=== PATIENT | male | born 1950 | race Caucasian/White ===

== ENCOUNTER 2018-05-22 10:20 | Outpatient (CLI) | payer MEDICARE, OTHER ==
--- NOTE | 2018-05-22 12:35 | MRI ---
MRI LUMBAR SPINE WITHOUT CONTRAST: HISTORY: Lumbar radiculopathy. Right arm pain with bilateral hand numbness. Low back pain with radiation shmuel n both legs. COMPARISON: None. TECHNIQUE: MRI lumbar spine is performed without intravenous Gadolinium administration. Multisequential, multip lanar imaging is performed. FINDINGS: Appropriate T1 marrow signal intensity of the lumbar vertebrae. Lumbar vertebral height is maintaine d. There is no fracture. No significant STIR hyperintensity to suggest vertebral body edema or liga mentous injury. There is edema involving the left and right pedicle at L4 and L5. There is a small amount of fluid in the associated facet joint at L4-L5. The presents of edema is likely due to mecha nical stress. Symmetric signal intensity of the psoas muscles. Appropriate signal intensity in the visualized leena d organs. Conus medullaris terminates at the mid L1 level. T12-L1: No significant central canal stenosis or neural foraminal narrowing. L1-L2: No significant central canal stenosis or foraminal narrowing. L2-L3: No significant central canal stenosis or foraminal narrowing. L3-L4: No significant central canal stenosis or foraminal narrowing. L4-L5: Mild loss of disk space height. Generalized disk bulge, ligamentum flavum thickening, and fa cet hypertrophy result in mild central canal stenosis. There is fluid in both facet joints. Mild bi lateral foraminal narrowing. L5-S1: Adequate disk hydration. No significant central canal stenosis. Neural foramen are patent. IMPRESSION: Degenerative disk disease at L4-L5 without significant central canal stenosis or significant foramina l narrowing. However, there does appear to be edematous change involving the left and right pedicle at L4 and L5 which is presumed to be due to mechanical stresses. POS: [facility]
--- NOTE | 2018-05-22 13:24 | MRI ---
CERVICAL SPINE MRI NONCONTRAST: Date: 05/22/18 INDICATION: Chronic neck pain, cervical radiculopathy, bilateral upper extremity numbness. No prior imaging comparison available. FINDINGS: There is degenerative hypertrophy at the C1-2 level with mild effacement of the ventral thecal sac, a lthough no significant proximal cord deformity as a result. C2-3: There is mild disc osteophyte without high grade central canal stenosis. Motion artifact limits asses sment of the neural foramina. C3-4: Broad based disc osteophyte effaces the ventral thecal sac and there is mild central canal stenosis. Neural foramina are obscured by motion, although there is suggestion of moderate to severe left margoth inal stenosis due to marked, asymmetric degenerative left facet hypertrophy. C4-5: There is a broad based disc osteophyte with mild narrowing of the central canal. Prominent, left asym metric facet hypertrophy results in severe left foraminal stenosis. There is moderate right foraminal stenosis. C5-6: There is a left paracentral disc protrusion superimposed upon a disc osteophyte complex. This results in ventral cord effacement and moderate central canal stenosis. Moderate biforaminal stenosis. C6-7: Right paracentral through subarticular broad based disc protrusion effaces the right ventral hemicord with mild central canal stenosis. There is moderate right and mild left foraminal narrowing. Bilater al degenerative facet hypertrophy. C7-T1: No high grade compromise of central canal or neural foramina identified within limitations. The degree of motion limits assessment of cord signal. There is a generalized heterogeneous T2 signal of the cord for which a component of underlying gliosis and/or cord edema cannot be entirely exclude d, although predominance of this finding does likely reflect motion artifact. There is no acute compression deformity or significant marrow edema. IMPRESSION: Limited exam by the degree of patient motion. There is multilevel degenerative change as outlined abo ve, which includes disc protrusions, effacing ventral aspect of the cervical spinal cord at the C5-6 and C6-7 levels. Multilevel foraminal stenosis is present, as well. POS: [facility]
== END 2018-05-22 10:21 | disposition home or self-care (01) ==
LOC: TBSIIMAG 10:20
PROVIDERS: ATTEND Neurological Surgery
DX: M51.16 Intervertebral disc disorders with radiculopathy, lumbar region (principal); M50.122 Cervical disc disorder at C5-C6 level with radiculopathy; M47.22 Other spondylosis with radiculopathy, cervical region; M99.81 Other biomechanical lesions of cervical region
CPT/HCPCS: 72141; 72148

== ENCOUNTER 2018-07-22 19:30 | Outpatient (CLI) | payer MEDICARE, OTHER | END 2018-07-22 19:31 | disposition home or self-care (01) | LOC: SLEEPLAB 19:30 | PROVIDERS: ATTEND Internal Medicine Pulmonary Disease | DX: G47.33 Obstructive sleep apnea (adult) (pediatric) (principal); R53.83 Other fatigue | CPT/HCPCS: 95810 ==

== ENCOUNTER 2019-10-22 05:49 | Day surgery (SDC) | payer MEDICARE, OTHER ==
[2019-10-21 09:12] VITALS: BMI 30.1
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
[2019-10-22] MEDS ORDERED: Fentanyl 100 MCG/2 ML VIAL ONE ×2 (06:19→08:24)
[2019-10-22] MEDS ORDERED: Midazolam HCl 2 mg/2 ml Vial ONE (06:19)
[2019-10-22] MEDS ORDERED: Thrombin 5000 UNITS/5 ML VIAL ONE (06:24)
[2019-10-22] MEDS ORDERED: Tamsulosin HCl 0.4 MG CAP ONE (08:24)
[2019-10-22] MEDS ORDERED: Morphine 4 MG/ML VIAL ONE (08:37)
[2019-10-22] MEDS ORDERED: Morphine 2 MG/ML SYRINGE ONE (08:44)
[2019-10-22] MEDS ORDERED: Ketorolac Tromethamine 30 MG/ML VIAL ONE (08:59)
--- NOTE | 2019-10-22 09:15 | OP ---
DATE OF PROCEDURE: 10/22/2019 [employer]OBE BLOCK MAKER: Dandre Mahoney PA-C INDICATION: Pain. DIAGNOSES: Cervical radiculopathy, anterior cervical diskectomy and fusion, C5-C6. ANESTHESIA: General. DESCRIPTION OF PROCEDURE: The patient was brought into the operating room and placed under general anesthesia. He was placed on table in supine position. A transverse incision was planned over the lateral aspect of the neck on the right. After prepping and draping and after an appropriate operative pause, the incision was created. The underlying platysmal muscle was identified and incised. A blunt tissue plane anterior to the sternocleidomastoid muscle was used to gain access to the prevertebral space. Self-retaining retractors were placed in the wound for optimal exposure. After confirming the appropriate level with C-arm fluoroscopy, an annulotomy was performed in the C5-C6 disk space. All disk material as well as anterior and posterior osteophytes were removed. After completing the decompression, a 7-mm lordotic PEEK cage packed with allograft and autograft material was placed within the interbody space. An anterior cervical plate was then fashioned from the spine and secured with a total of 4 fixed screws. Midline and lateral structures were inspected and found to be free from significant trauma. The wound was irrigated. Hemostasis was maintained throughout. The wound was then closed in anatomic layers, and a pressure dressing was applied. There were no known procedural complications. Job ID: [id number]
[2019-10-22] MEDS ORDERED: HYDROcodone/Acetaminophen 5/325 mg Tablet ONE (10:04)
[2019-10-22] MEDS ORDERED: Ondansetron PF 4 MG/2 ML Vial ONE (13:43)
[2019-10-22] MEDS ORDERED: Lidocaine 1% PF 5 ML VIAL ONE (13:43)
[2019-10-22] MEDS ORDERED: PROPOFOL 200 MG/20 ML VIAL ONE (13:43)
[2019-10-22] MEDS ORDERED: Rocuronium Bromide 10 MG/ML (10ML VIAL) ONE (13:43)
[2019-10-22] MEDS ORDERED: Glycopyrrolate 0.2 MG/ML 5 ML SYRINGE ONE (13:43)
--- NOTE | 2019-10-26 10:28 | EKG ---
Test Reason : PREOP Blood Pressure : / mmHG Vent. Rate : 073 BPM Atrial Rate : 073 BPM P-R Int : 168 ms QRS Dur : 096 ms QT Int : 412 ms P-R-T Axes : 048 003 025 degrees QTc Int : 453 ms Normal sinus rhythm Normal ECG No previous ECGs available Confirmed by JULIO CESAR THOMASON (2) on 10/26/2019 10:28:12 AM Referred By: SHAVON Confirmed By:JULIO CESAR THOMASON
== END 2019-10-22 11:28 | disposition home or self-care (01) ==
LOC: SDC 05:49
PROVIDERS: ATTEND Neurological Surgery
PROC: 0RG10A0 Fusion of Cervical Vertebral Joint with Interbody Fusion Device, Anterior Approach, Anterior Column, Open Approach (ICD-10-PCS; principal; 2019-10-22)
PROC: 0RT30ZZ Resection of Cervical Vertebral Disc, Open Approach (ICD-10-PCS; 2019-10-22)
DX: M54.12 Radiculopathy, cervical region (principal); M48.02 Spinal stenosis, cervical region; E78.00 Pure hypercholesterolemia, unspecified; M19.90 Unspecified osteoarthritis, unspecified site; I10 Essential (primary) hypertension; G89.4 Chronic pain syndrome; Z85.9 Personal history of malignant neoplasm, unspecified; Z79.899 Other long term (current) drug therapy
CPT/HCPCS: 20930; 20936; 22551; 22853; 76000; 93005; C1713; C1776; 93010; J0690; J1885; J2001; J2250; J2270; J2405; J2704; J3010

== ENCOUNTER 2021-03-19 15:06 | Outpatient (CLI) | payer MEDICARE ==
[~2021-03-19 15:06] MED LIST: Magnevist 469MG/ML 20 ML VIAL ONE
== END 2021-03-19 15:07 | disposition home or self-care (01) ==
LOC: TBSIIMAG 15:06
PROVIDERS: ATTEND Urology
DX: C61 Malignant neoplasm of prostate (principal)
CPT/HCPCS: 72197; 82565; A9579

== ENCOUNTER 2021-04-17 10:36 | Outpatient (CLI) | payer MEDICARE ==
[2021-04-17 12:58] LABS: Bilirubin Neg (Negative); Blood, Urine 25 (Negative); Clarity Clear (Clear); Glucose, Urine (Dipstick) Normal (Negative); Ketone, Urine Negative (Negative); Leukocyte Negative (Negative); Nitrite Negative (Negative); Protein, Urine (Dipstick) 30 mg/dl (Neg-Trace); Urobilinogen Normal mg/dL (Less than 2)
[2021-04-17 13:40] LABS: Bacteria/HPF None Seen HPF (None Seen); RBC/HPF 0-3 HPF (0-3); Squamous Epithelial 0-3 HPF (0-3); WBC/HPF None Seen HPF (0-3)
[2021-04-18 15:39] LABS: SARS-CoV-2 PCR by NAA Not Detected (NotDetected)
== END 2021-04-17 10:37 | disposition home or self-care (01) ==
LOC: LABBT 10:36
PROVIDERS: ATTEND Urology
DX: Z01.818 Encounter for other preprocedural examination (principal); C61 Malignant neoplasm of prostate; C60.9 Malignant neoplasm of penis, unspecified; N40.1 Benign prostatic hyperplasia with lower urinary tract symptoms; E29.1 Testicular hypofunction; N52.01 Erectile dysfunction due to arterial insufficiency; Z20.822 Contact with and (suspected) exposure to COVID-19
CPT/HCPCS: 81001; 87086; 93005; U0003; U0005; 93010

== ENCOUNTER 2021-05-04 06:05 | Day surgery (SDC) | payer MEDICARE ==
[2021-05-03 12:28] VITALS: BMI 30.1
[2021-05-04] MEDS ORDERED: Bupivacaine 0.25% HCL 30 ML VIAL ONE (06:36)
[2021-05-04] MEDS ORDERED: Fentanyl 100 MCG/2 ML VIAL ONE (06:40)
[2021-05-04] MEDS ORDERED: cefTRIAXone\\ROCEPHIN 2 GM VIAL ONE (06:43)
[2021-05-04] MEDS ORDERED: Sodium Chloride 0.9% 100 ML ONE (06:43)
[2021-05-04] MEDS ORDERED: Albuterol Sulfate HFA (OR ONLY) ONE (07:18)
[2021-05-04] MEDS ORDERED: Glycopyrrolate 0.2 MG/ML 5 ML SYRINGE ONE (07:36)
[2021-05-04] MEDS ORDERED: PHENYLEPHRINE-NS 100 MCG/ML 10 ML SYRINGE ONE (07:36)
[2021-05-04] MEDS ORDERED: Ondansetron PF 4 MG/2 ML Vial ONE (07:36)
[2021-05-04] MEDS ORDERED: Lidocaine 1% PF 5 ML VIAL ONE (07:36)
[2021-05-04] MEDS ORDERED: Dexamethasone 20 MG/5 ML VIAL ONE (07:36)
[2021-05-04] MEDS ORDERED: PROPOFOL 20 ML ONE (08:01)
== END 2021-05-04 10:00 | disposition home or self-care (01) ==
LOC: SDC 06:05
PROVIDERS: ATTEND Urology
PROC: 0VB03ZX Excision of Prostate, Percutaneous Approach, Diagnostic (ICD-10-PCS; principal; 2021-05-04)
DX: C61 Malignant neoplasm of prostate (principal); N40.1 Benign prostatic hyperplasia with lower urinary tract symptoms; N52.9 Male erectile dysfunction, unspecified; E78.5 Hyperlipidemia, unspecified; I10 Essential (primary) hypertension; G43.909 Migraine, unspecified, not intractable, without status migrainosus; Z79.899 Other long term (current) drug therapy; Z87.891 Personal history of nicotine dependence
CPT/HCPCS: 88305; J0696; J1100; J2405; J2704; J3010; J3490; S0020

== ENCOUNTER 2021-06-14 13:25 | Outpatient (CLI) | payer MEDICARE ==
[2021-06-14 14:17] LABS: Hemoglobin 13.2 g/dL (13.5-17.5); Mean Corpuscular HGB CONC 33.2 g/dL (32.0-36.0); Mean Corpuscular Hemoglobin 31.8 pg (27.0-33.0); Mean Corpuscular Volume 95.7 fl (81.2-95.1); Mean Platelet Volume 10.4 fl (7.4-10.4); Platelet Count 286 10x3/uL (150-450); RBC Distribution Width 12.6 % (11.5-14.5); Red Blood Cell (RBC) Count 4.15 10x6/uL (4.32-5.72); White Blood Cell (WBC) Count 9.9 10x3/uL (3.5-10.5)
[2021-06-14 14:23] LABS: Bilirubin Neg (Negative); Blood, Urine 25 (Negative); Glucose, Urine (Dipstick) Normal (Negative); Ketone, Urine Negative (Negative); Leukocyte 25 (Negative); Nitrite Negative (Negative); Protein, Urine (Dipstick) 100 mg/dl (Neg-Trace); Urobilinogen Normal mg/dL (Less than 2)
[2021-06-14 14:30] LABS: Anion Gap 14 mmol/L (10-20); BUN (Urea Nitrogen) 20 mg/dL (8.4-25.7); Calc. Creatinine Clearance 0 mL/min (70-130); Calcium 10.4 mg/dL (7.8-10.44); Carbon Dioxide 25 mmol/L (23-31); Chloride 109 mmol/L (98-107); Glucose 93 mg/dL (83-110); Sodium 144 mmol/L (136-145)
[2021-06-14 14:41] LABS: Clarity Slightly Cloudy (Clear)
[2021-06-14 14:44] LABS: RBC/HPF 0-3 HPF (0-3)
[2021-06-14 14:45] LABS: Bacteria/HPF Rare-Few HPF (None Seen); Renal Epithelial 0-3 HPF (None Seen); Squamous Epithelial 0-3 HPF (0-3)
[2021-06-14 14:46] LABS: Mucous/LPF 2+ LPF (<2+)
[2021-06-15 13:05] LABS: SARS-CoV-2 PCR by NAA Not Detected (NotDetected)
== END 2021-06-14 13:26 | disposition home or self-care (01) ==
LOC: LABBT 13:25
PROVIDERS: ATTEND Urology
DX: Z01.818 Encounter for other preprocedural examination (principal); N40.0 Benign prostatic hyperplasia without lower urinary tract symptoms; Z20.822 Contact with and (suspected) exposure to COVID-19
CPT/HCPCS: 80048; 81001; 85027; 87086; 93005; U0003; U0005; 93010

== ENCOUNTER 2021-06-19 06:29 | Day surgery (SDC) | payer MEDICARE ==
[2021-06-18 13:16] VITALS: BMI 30.7
[2021-06-19] MEDS ORDERED: Levofloxacin 500 mg/D5W 100 ml Premix Bag ONE (07:21)
[2021-06-19] MEDS ORDERED: Fentanyl 100 MCG/2 ML VIAL ONE (08:05)
[2021-06-19] MEDS ORDERED: PROPOFOL 200 MG/20 ML VIAL ONE (08:12)
== END 2021-06-19 09:55 | disposition home or self-care (01) ==
LOC: SDC 06:29
PROVIDERS: ATTEND Urology
PROC: 0T7D8DZ Dilation of Urethra with Intraluminal Device, Via Natural or Artificial Opening Endoscopic (ICD-10-PCS; principal; 2021-06-19)
DX: N40.1 Benign prostatic hyperplasia with lower urinary tract symptoms (principal); N13.8 Other obstructive and reflux uropathy; N32.89 Other specified disorders of bladder; C61 Malignant neoplasm of prostate; I10 Essential (primary) hypertension; Z79.899 Other long term (current) drug therapy
CPT/HCPCS: J1956; J2704; J3010; L8699

== ENCOUNTER 2024-09-13 15:32 | Outpatient (CLI) | payer MEDICARE | END 2024-09-13 15:33 | disposition home or self-care (01) | LOC: RAD 15:32 | PROVIDERS: ATTEND Radiology Radiation Oncology | DX: M15.9 Polyosteoarthritis, unspecified (principal); M19.032 Primary osteoarthritis, left wrist; M18.12 Unilateral primary osteoarthritis of first carpometacarpal joint, left hand; M19.031 Primary osteoarthritis, right wrist ==

== ENCOUNTER 2025-09-23 12:10 | Emergency (ER) | payer MEDICARE, OTHER ==
[2025-09-23] MEDS ORDERED: Bacitracin 1 PK ONE (13:08)
== END 2025-09-23 13:10 | disposition home or self-care (01) ==
LOC: ERS 12:10
DX: S61.431A Puncture wound without foreign body of right hand, initial encounter (principal); L03.113 Cellulitis of right upper limb; Z23 Encounter for immunization; W26.8XXA Contact with other sharp object(s), not elsewhere classified, initial encounter; Y93.89 Activity, other specified
CPT/HCPCS: 90471; 90715